=== PATIENT | female | born 1945 | race Caucasian/White ===

== ENCOUNTER 2018-05-23 13:43 | Emergency (ER) | payer OTHER, MEDICARE ==
[~2018-05-23] VITALS: Ht 165.1 cm; Wt 68.0 kg
[~2018-05-23 13:43] MED LIST: ATORVASTATIN CA10 M1 PO; BIOTIN5 M2 PO; BYSTOLIC2.5 M1 PO; CALTRATE 600 +1 EACH PO; CENTRUM SILVER1 EACH PO; CITALOPRAM HBR40 MG PO; COQ-10100 MG PO; FLAGYL500 MG PO; HYDROCODONE/ACE1 TA1 PO; MAGNESIUM400 M1 PO; MEDROL DOSEPAK1 PAC PO; OMEGA 3-6-9 11200 MG PO; POLYETHYLENE G255 GM PO; POLYTRIM O200 GTT/BO OPH; VALIUM5 M1 PO
[2018-05-23 14:02] LABS: ABSOLUTE BASOPHIL COUNT 0 /CUMM (0.0-0.2); ABSOLUTE EOSINOPHIL COUNT 0.1 /CUMM (0.0-0.7); ABSOLUTE GRANULOCYTE CT 4.9 /CUMM (1.4-6.5); ABSOLUTE MONOCYTE COUNT 0.6 /CUMM (0.10-0.60); BASOPHIL % 0.6 % (0.0-2.0); EOSINOPHIL % 1.3 % (0-5); GRANULOCYTE % 63.9 % (42.2-75.2); MEAN CORPUSCULAR HGB 31.4 PG (27.0-31.0); MEAN CORPUSCULAR HGB CONC 33.8 G/DL (33.0-37.0); MEAN CORPUSCULAR VOLUME 92.9 FL (81.0-99.0); MEAN PLATELET VOLUME 7.8 FL (7.4-10.4); PLATELET COUNT 322 /CUMM (130-400); RBC DISTRIBUTION WIDTH 12.9 % (11.5-14.5); RED BLOOD CELL CT 4.63 /CUMM (4.20-5.40); WHITE BLOOD CELL COUNT 7.7 /CUMM (4.8-10.8)
[2018-05-23] MEDS ORDERED: ALENDRONATE SOD70 M2 PO (14:52)
--- NOTE | 2018-05-23 15:16 | ED AMS/SEIZURE/WEAK/DIZZY ---
History of Present Illness General Chief Complaint: Dizziness Stated Complaint: DIZZINESS, LIGHT HEADED Source: patient Exam Limitations: no limitations Vital Signs & Intake/Output Vital Signs & Intake/Output Vital Signs Date Time Temp Pulse Resp B/P B/P Pulse O2 O2 Flow FiO2 Mean Ox Delivery Rate 05/23 1741 65 16 118/74 98 Room Air 05/23 1347 98.1 68 18 136/79 95 Room Air Room Air ED Intake and Output 05/24 0000 05/23 1200 Intake Total 100 Output Total Balance 100 Intake, IV 100 Patient 150 lb Weight Weight Reported by Patient Measurement Method Allergies Coded Allergies: terconazole (Intermediate, FLU-LIKE S/S 02/12/16) Uncoded Allergies: EGGS (Intermediate, NASUEA 05/19/18) Reconcile Medications Alendronate Sodium 70 MG TABLET 1 TAB PO QW BONE (Reported) in the morning, at least 30 minutes before the first food, beverage, or medication of the day Atorvastatin Calcium 10 MG TABLET 1 TAB PO DAILY HEART HEALTH (Reported) Biotin 5 MG TABLET 1 TAB PO DAILY VITAMIN (Reported) Calcium Carbonate/Vitamin D3 (Caltrate 600 + D Tablet) 600 MG-800 TABLET 1 TAB PO DAILY BONE HEALTH (Reported) Citalopram Hydrobromide (Citalopram HBr) 40 MG TABLET 1 TAB PO DAILY ANXIETY (Reported) Fish Oil/Borage/Flax/Om3,6,9#1 ([place] 3-6-9 1,200 MG Softgel) 1,200 MG CAPSULE 1 CAP PO DAILY VITAMIN (Reported) Magnesium Oxide (Magnesium) 400 MG CAPSULE 1 CAP PO DAILY HEART HEALTH ( Reported) Meclizine HCl 25 MG TABLET 1 TAB PO TIDPRN PRN DIZZY Multivit-Min/Iron/Folic/Lutein (Centrum Silver Women Tablet) 8 MG IRON-400 MCG- 300 MCG TABLET 1 TAB PO DAILY VITAMIN (Reported) Nebivolol HCl (Bystolic) 2.5 MG TABLET 1 TAB PO DAILY PALPITATIONS (Reported) Ubidecarenone (Coq-10) 100 MG CAPSULE 1 TAB PO DAILY HEARTH HEALTH (Reported) Triage Note: PT RETURNS TO ED, PER PT SEEN ON MONDAY FOR C/O DIZZINESS, LIGHTHEADED, HAD BLOODWORK,EKG, HEAD CT, DC HOME. PER PT "NO BETTER", PT DENIES N/V/D TODAY. Triage Nurses Notes Reviewed? yes Onset: Abrupt Duration: day(s): (4-5), changing over time, continues in ED Timing: single episode today Injury Environment: home Severity: mild, moderate Severity Numbers: 6 No Modifying Factors: none LMP (ages 10-50): post menopausal : No Patient currently breastfeeds: No HPI: 73-year-old female history of hypertension hyperlipidemia and anxiety presents for reevaluation of dizziness. Patient reports the past 4-5 days she has had abdomen dizziness and headache. She reports that the headache is located globally described as pressure. The dizziness is present with movement of her head and walking. It does resolve at rest. No associated changes in vision. She does report some nausea but no vomiting. No head trauma fever chest pain shortness of breath palpitations syncope. No lower extremity edema. She was seen here several days ago when the symptoms first started she had blood work head CT everything was negative she was discharged home. She reports she has not been taking any medicine for her symptoms. She's never had this before. No one-sided weakness or slurred speech. (Laith Bond) Past History Travel History Traveled to [place] past 21 day No Medical History Any Pertinent Medical History? see below for history Neurological: NONE EENT: NONE Cardiovascular: hypertension, hyperlipidemia, PALPATATIONS Respiratory: NONE Gastrointestinal: diverticulitis Hepatic: NONE Renal: NONE Musculoskeletal: NONE Psychiatric: anxiety Endocrine: NONE Blood Disorders: NONE Cancer(s): NONE Surgical History Surgical History: PEPE, BSO, TONSILLECTOMY Psychosocial History What is your primary language Armenian Tobacco Use: Never used ETOH Use: denies use Illicit Drug Use: denies illicit drug use Family History Hx Contributory? No (Laith Bond) Review of Systems Review of Systems Constitutional: Reports: no symptoms. EENTM: Reports: no symptoms. Respiratory: Reports: no symptoms. Cardiovascular: Reports: no symptoms. GI: Reports: no symptoms. Genitourinary: Reports: no symptoms. Musculoskeletal: Reports: no symptoms. Skin: Reports: no symptoms. Neurological/Psychological: Reports: see HPI (dizzy), headache. Hematologic/Endocrine: Reports: no symptoms. Immunologic/Allergic: Reports: no symptoms. All Other Systems: Reviewed and Negative (Laith Bond) Physical Exam Physical Exam General Appearance: well developed/nourished, no apparent distress, alert, awake Head: atraumatic, normal appearance Eyes: Bilateral: normal appearance, PERRL, EOMI. Ears, Nose, Throat: hearing grossly normal Neck: normal inspection, supple, full range of motion Respiratory: normal breath sounds, chest non-tender, no respiratory distress, lungs clear Cardiovascular: regular rate/rhythm, normal peripheral pulses Peripheral Pulses: 2+ radial (R), 2+ radial (L) Gastrointestinal: soft, non-tender Back: normal inspection, normal range of motion, no vertebral tenderness Extremities: normal range of motion Neurologic/Psych: no motor/sensory deficits, awake, alert, oriented x 3, normal gait, normal mood/affect, oncology social work II-XII nml as tested, cerebellar testing intact Skin: intact, normal color, warm/dry Lymphatic: no anterior cervical sami Core Measures ACS in differential dx? No CVA/TIA Diagnosis No Sepsis Present: No Sepsis Focused Exam Completed? No (Laith Bond) Progress Differential Diagnosis: arrythmia, anemia, benign positional vertigo, CVA/stroke , dehydration, electrolyte imbalance, intracranial Hem., intracranial mass/tumor , migraine [place], pneumonia, postural hypotension, presyncope, post-traumatic vertigo, seizure disorder, subarachnoid Hem., UTI/pyelo, vertebrobasilar insuff Plan of Care: Orders Procedure Date/time Status TROPONIN LEVEL 05/23 1348 Complete COMPREHENSIVE METABOLIC PANEL 05/23 1348 Complete CBC WITHOUT DIFFERENTIAL 05/23 1348 Complete EKG 05/23 1348 Active Laboratory Tests 05/23/18 1354: Anion Gap 9, Estimated GFR > 60, BUN/Creatinine Ratio 17.1, Glucose 91, Calcium 10.1, Total Bilirubin 0.9, AST 37 H, ALT 45, Alkaline Phosphatase 61, Troponin I < 0.01, Total Protein 7.0, Albumin 4.2, Globulin 2.8, Albumin/Globulin Ratio 1.5, CBC w Diff NO MAN DIFF REQ, RBC 4.63, MCV 92.9, MCH 31.4 H, MCHC 33.8, RDW 12.9, MPV 7.8, Gran % 63.9, Lymphocytes % 26.2, Monocytes % 8.0, Eosinophils % 1.3, Basophils % 0.6, Absolute Granulocytes 4.9, Absolute Lymphocytes 2.0, Absolute Monocytes 0.6, Absolute Eosinophils 0.1, Absolute Basophils 0 Patient is here for reevaluation of dizziness. The dizziness seems to be worse when she moves her head or walks. It resolves at rest. She also reports a pressure headache. She is neurologically intact. Cerebellar testing intact. She is not taking any medicine for her symptoms. Labs EKG ordered patient medicated with meclizine and Tylenol. We'll check a CT of the head and neck. Labs are not showing any acute findings. EKG is stable and unchanged. Troponin is negative. CTA of the head and neck is negative for any acute findings. Patient is feeling much better after Tylenol and meclizine. She was ambulated in the emergency department and has a steady gait. Patient is able tolerate food and fluids. Her symptoms are not constant she's neurologically intact. Considered a cerebellar stroke however a peripheral vertigo seems more likely given the clinical picture. Patient will be given scheduled for meclizine to go home with. Advised her to follow-up with a primary care doctor as well as ENT. Discussed return precautions in detail case discussed with Dr. Edwards he agrees. Diagnostic Imaging: Viewed by Me: CT Scan. Discussed w/RAD: CT Scan. Radiology Impression: PATIENT: STELLA SORTO PRESENT AGE: 73 PATIENT ACCOUNT NO: [id number] : 47 LOCATION: [facility] ORDERING PHYSICIAN: Laith PRICE SERVICE DATE: 05/23/18 EXAM TYPE: CAT - CT HEAD ANGIOGRAM; CT NECK ANGIOGRAM EXAMINATION: CT ANGIOGRAM NECK WITH CONTRAST CT ANGIOGRAM BRAIN WITH CONTRAST CLINICAL INFORMATION: Dizziness and headaches for 5 days. COMPARISON: Head CT 05/19/2018. TECHNIQUE: First, a noncontrast CT of the head was performed. Next, test bolus sequences followed by intravenous administration 95 mL of Optiray 320. Helical imaging was performed in the axial plane from the thoracic inlet to the skull vertex. Delayed postcontrast imaging of the head was also performed. The data was processed at the biotechnologist workstation for generation of MIP sequences. Angled MIPs and volume rendered reformatted images were also generated at an offline 3D workstation. Stenoses are assessed in accordance with NASCET criteria unless otherwise indicated. FINDINGS: BRAIN: Perivascular space within the inferior right putamen. There is no intracranial hemorrhage, hydrocephalus, extra-axial surface collection, midline shift, or other herniation pattern. Brewer to white matter differentiation is diffusely maintained without evidence of an evolved acute territorial infarct. The basilar cisterns are preserved. No significant soft tissue abnormality. No acute osseous abnormality. The paranasal sinuses and the mastoid air cells are well-aerated. CERVICAL SOFT TISSUES AND LUNG APICES: There is pleural parenchymal scarring at the lung apices. Cervical spondylosis. No significant soft tissue findings within the neck. NECK CTA: There is a classic 3 vessel configuration of the aortic arch. Proximal arch vessels are non-stenotic. The vertebral arteries are codominant. No significant ostial stenosis is visualized on either side. Both vertebral arteries are widely patent throughout their extracranial cervical course. Both common and internal carotid arteries are normal in course and caliber. BRAIN CTA: There is normal opacification of major intracranial arteries. No focal flow-limiting stenosis, discrete proximal large artery occlusion, or saccular intradural aneurysm is identified. Timing of the contrast bolus allows assessment of the major dural venous sinuses, which all opacify normally. IMPRESSION: Unremarkable CTA of the head and neck. No acute arterial occlusions, no significant arterial stenoses, and no aneurysms. No acute intracranial findings. DICTATED BY: Favio Krueger MD DATE/TIME DICTATED:05/23/181609 TUBE MAKING MACHINE OPERATOR:LAWRENCE DATE/TIME TRANSCRIBED:1609 CONFIDENTIAL, DO NOT COPY WITHOUT APPROPRIATE AUTHORIZATION. Initial ED EKG: normal sinus rhythm, nonspecific ST T wave chg, BORDERLINE LAD (Laith Bond) Departure Departure Disposition: HOME OR SELF CARE Condition: Stable Clinical Impression Primary Impression: Dizziness Referrals: Clemente IRIZARRY,Leti Lainez MD,Meri (PCP/Family) Additional Instructions: Rest and drink plenty of fluids. Tylenol for headaches or pain. Meclizine for dizziness. Make a follow-up with your primary care doctor and provided ear nose and throat doctor as soon as possible. Monitor symptoms return with any concern. Departure Forms: Customer Survey General Discharge Information Prescriptions: Current Visit Scripts Meclizine HCl 1 TAB PO TIDPRN PRN DIZZY #30 TAB (Laith Bond) PA/WARD SERVICE SUPERVISOR Co-Sign Statement Statement: ED Attending supervision documentation- [] I saw and evaluated the patient. I have also reviewed all the pertinent lab results and diagnostic results. I agree with the findings and the plan of care as documented in the PA's/WARD SERVICE SUPERVISOR's documentation. [x] I have reviewed the ED Record and agree with the PA's/WARD SERVICE SUPERVISOR's documentation. [] Additions or exceptions (if any) to the PAs/WARD SERVICE SUPERVISOR's note and plan are summarized below: [] (Dougie Edwards DO)
--- NOTE | 2018-05-23 16:30 | CT SCAN REPORT ---
EXAMINATION: CT ANGIOGRAM NECK WITH CONTRAST CT ANGIOGRAM BRAIN WITH CONTRAST CLINICAL INFORMATION: Dizziness and headaches for 5 days. COMPARISON: Head CT 05/19/2018. TECHNIQUE: First, a noncontrast CT of the head was performed. Next, test bolus sequences followed by intravenous administration 95 mL of Optiray 320. Helical imaging was performed in the axial plane from the thoracic inlet to the skull vertex. Delayed postcontrast imaging of the head was also performed. The data was processed at the cytology technologist workstation for generation of MIP sequences. Angled MIPs and volume rendered reformatted images were also generated at an offline 3D workstation. Stenoses are assessed in accordance with NASCET criteria unless otherwise indicated. FINDINGS: BRAIN: Perivascular space within the inferior right putamen. There is no intracranial hemorrhage, hydrocephalus, extra-axial surface collection, midline shift, or other herniation pattern. Brewer to white matter differentiation is diffusely maintained without evidence of an evolved acute territorial infarct. The basilar cisterns are preserved. No significant soft tissue abnormality. No acute osseous abnormality. The paranasal sinuses and the mastoid air cells are well-aerated. CERVICAL SOFT TISSUES AND LUNG APICES: There is pleural parenchymal scarring at the lung apices. Cervical spondylosis. No significant soft tissue findings within the neck. NECK CTA: There is a classic 3 vessel configuration of the aortic arch. Proximal arch vessels are non-stenotic. The vertebral arteries are codominant. No significant ostial stenosis is visualized on either side. Both vertebral arteries are widely patent throughout their extracranial cervical course. Both common and internal carotid arteries are normal in course and caliber. BRAIN CTA: There is normal opacification of major intracranial arteries. No focal flow-limiting stenosis, discrete proximal large artery occlusion, or saccular intradural aneurysm is identified. Timing of the contrast bolus allows assessment of the major dural venous sinuses, which all opacify normally. IMPRESSION: Unremarkable CTA of the head and neck. No acute arterial occlusions, no significant arterial stenoses, and no aneurysms. No acute intracranial findings.
[2018-05-23] MEDS ORDERED: MECLIZINE HCL25 MG PO (17:32)
[2018-05-23 17:41] VITALS: BP 118/74
== END 2018-05-23 17:42 ==
LOC: ERH 13:43
PROVIDERS: Physician Assistant Medical
DX: R42 Dizziness and giddiness (principal)
CPT/HCPCS: 93005; 93010; 96374; J0131